=== PATIENT | female | born 1980 | race Caucasian/White ===

== ENCOUNTER 2017-03-07 14:24 | Emergency (ER) | payer BC ==
[~2017-03-07] VITALS: Ht 162.5 cm; Wt 59.9 kg
[~2017-03-07 14:24] MED LIST: AMOXICILLIN500 MG PO; ATIVAN0.5 MG PO; ATIVAN1 MG PO; ATOXIMETIN-B1 CAP PO; B COMPLEX & B121 TAB PO; BACTRIM DS 8001 TA1 PO; BIRTH CONTROL1 EAC1 PO; CATAPRES0.1 MG PO; CLINDAMYCIN HC300 MG PO; ELMIRON100 MG PO; LISINOPRIL10 MG PO; LOPRESSOR50 MG PO; NEURONTIN600 MG PO; NEXIUM20 MG/PACK PO; NEXIUM40 MG PO; PENICILLIN VK500 MG PO; PRINIVIL5 MG PO; TRAMADOL HCL50 MG PO; ULTRAM50 MG PO; VICODIN ES 7501 TAB PO; XANAX0.5 MG PO; ZESTRIL10 MG PO; ZOLOFT100 MG PO; ZOLOFT25 MG PO; ZOLOFT50 MG PO
[2017-03-07] MEDS ORDERED: ABILIFY10 MG PO (14:30)
[2017-03-07] MEDS ORDERED: BUSPAR15 MG PO (14:30)
[2017-03-07] MEDS ORDERED: XANAX1 MG PO (14:30)
[2017-03-07] MEDS ORDERED: AMOXICILLIN500 M2 PO (14:40)
[2017-03-07] MEDS ORDERED: ANAPROX DS550 MG PO (14:40)
== END 2017-03-07 14:54 | disposition home or self-care (01) ==
LOC: ED 14:24
DX: K08.89 Other specified disorders of teeth and supporting structures (principal); F17.200 Nicotine dependence, unspecified, uncomplicated; Z79.899 Other long term (current) drug therapy

== ENCOUNTER 2018-12-11 14:07 | Emergency (ER) | payer OTHER ==
[~2018-12-11] VITALS: Ht 162.5 cm; Wt 59.0 kg
[~2018-12-11 14:07] MED LIST changes: +ABILIFY10 MG PO; +AMOXICILLIN500 M2 PO; +ANAPROX DS550 MG PO; +BUSPAR15 MG PO; +XANAX1 MG PO
[2018-12-11 14:40] LABS: BASO % 0.4 % (0.0-1.0); EOS # 0.1 10*3/uL (0.0-0.4); EOS % 0.6 % (1.0-4.0); HEMATOCRIT 40.3 % (37.0-47.0); HEMOGLOBIN 13.9 g/dl (12.0-16.0); MEAN CELL VOLUME 96.9 fl (81.0-99.0); MEAN CORPUSCULAR HGB 33.4 pg (27.0-31.0); MEAN CORPUSCULAR HGB CONC 34.5 g/dl (33.0-37.0); MEAN PLATELET VOLUME 10.5 fl (9.6-12.3); MONO # 0.9 10*3/uL (0.1-1.0); MONO % 9.1 % (3.0-9.0); NEUT # 7.7 10*3/uL (2.3-7.9); NEUT % 79.6 % (47.0-73.0); PLATELET COUNT AUTOMATED 237 10*3/uL (130-400); RED BLOOD COUNT 4.16 10*6/uL (4.10-5.10); RED CELL DISTRI WIDTH 12.6 % (0-14.5); WHITE BLOOD COUNT 9.6 10*3/uL (4.8-10.8)
[2018-12-11 15:02] LABS: ALBUMIN 3.2 gm/dl (3.1-4.5); ALKALINE PHOSPHATASE 83 U/L (45-117); BUN 7 mg/dl (7-24); CHLORIDE 106 mmol/L (98-107); CREATININE 0.92 mg/dL (0.55-1.02); POTASSIUM 3.4 mmol/L (3.5-5.1); SGOT/AST 19 IU/L (3-35); SGPT/ALT 18 U/L (12-78); SODIUM 137 mmol/L (136-145); TOTAL PROTEIN 7.2 gm/dL (6.4-8.2)
[2018-12-11] MEDS ORDERED: PREDNISONE20 M1 PO (16:34)
[2018-12-11] MEDS ORDERED: VIBRAMYCIN100 MG PO (16:34)
[2018-12-11] MEDS ORDERED: PROVENTIL HFA6.7 GM INH (16:34)
== END 2018-12-11 16:40 | disposition home or self-care (01) ==
LOC: ED 14:07
PROVIDERS: Emergency Medicine
DX: J40 Bronchitis, not specified as acute or chronic (principal); I10 Essential (primary) hypertension; F17.200 Nicotine dependence, unspecified, uncomplicated; Z79.899 Other long term (current) drug therapy; Z79.2 Long term (current) use of antibiotics

== ENCOUNTER 2018-12-17 14:56 | Emergency (ER) | payer OTHER ==
[~2018-12-17] VITALS: Ht 162.5 cm; Wt 59.0 kg
[~2018-12-17 14:56] MED LIST changes: +PREDNISONE20 M1 PO; +PROVENTIL HFA6.7 GM INH; +VIBRAMYCIN100 MG PO
[2018-12-17 15:42] LABS: BASO % 0.2 % (0.0-1.0); EOS % 0.2 % (1.0-4.0); HEMATOCRIT 43.2 % (37.0-47.0); HEMOGLOBIN 14.4 g/dl (12.0-16.0); LYMPH # 2.9 10*3/uL (1.3-4.4); LYMPH % 24.5 % (27.0-41.0); MEAN CELL VOLUME 98.9 fl (81.0-99.0); MEAN CORPUSCULAR HGB CONC 33.3 g/dl (33.0-37.0); MEAN PLATELET VOLUME 9.6 fl (9.6-12.3); MONO # 0.9 10*3/uL (0.1-1.0); MONO % 7.1 % (3.0-9.0); NEUT # 8.1 10*3/uL (2.3-7.9); NEUT % 67.2 % (47.0-73.0); PLATELET COUNT AUTOMATED 332 10*3/uL (130-400); RED BLOOD COUNT 4.37 10*6/uL (4.10-5.10); RED CELL DISTRI WIDTH 12.8 % (0-14.5)
[2018-12-17 16:09] LABS: ALBUMIN 3.5 gm/dl (3.1-4.5); ALKALINE PHOSPHATASE 87 U/L (45-117); BUN 11 mg/dl (7-24); CHLORIDE 99 mmol/L (98-107); CREATININE 1.04 mg/dL (0.55-1.02); POTASSIUM 3.4 mmol/L (3.5-5.1); SGOT/AST 20 IU/L (3-35); SGPT/ALT 21 U/L (12-78); SODIUM 136 mmol/L (136-145); TOTAL PROTEIN 7.6 gm/dL (6.4-8.2)
[2018-12-17] MEDS ORDERED: TESSALON PERLE100 M1 PO (16:39)
[2018-12-17] MEDS ORDERED: ANAPROX DS550 MG PO (16:39)
[2018-12-17] MEDS ORDERED: ZITHROMAX250 MG PO (16:39)
== END 2018-12-17 16:46 | disposition home or self-care (01) ==
LOC: ED 14:56
PROVIDERS: Physician Assistant
DX: K08.89 Other specified disorders of teeth and supporting structures (principal); R05 Cough; Z79.899 Other long term (current) drug therapy

== ENCOUNTER 2019-06-12 07:54 | Emergency (ER) | payer OTHER ==
[~2019-06-12] VITALS: Ht 266.7 cm; Wt 58.5 kg
--- NOTE | ~2019-06-12 | EKG ---
[place], [place] ELECTROCARDIOGRAM REPORT NAME: VIANCA ERICKSON UNIT #: [id number] ROOM: DOCTOR: EPIPHANY DRAFT REPORT BIRTHDATE: [birth year] [facility] Test Date: 2019-06-12 Test Time: 10:46:37 Pat Name: VIANCA ERICKSON Department: Room: Gender: F [employer] Teacher: : 1980 Requested By: DOROTHY CHANDLER Order Number: [id number] Reading MD: Tariq James MD Measurements Intervals [place] Rate: 83 P: 44 [place]: 112 QRS: 57 QRSD: 83 T: 44 QT: 347 QTc: 408 Interpretive Statements Sinus rhythm Electronically Signed On 06-13-2019 9:01:47 PDT by Tariq James MD CM:EKGRPT:ELECTROCARDIOGRAM REPORT [id number] DOROTHY MCDONALD DRAFT REPORT DOROTHY CHANDLER MD
[~2019-06-12 07:54] MED LIST changes: +TESSALON PERLE100 M1 PO; +ZITHROMAX250 MG PO
[2019-06-12 08:16] LABS: BASO # 0.1 10*3/uL (0.0-0.1); BASO % 0.8 % (0.0-1.0); EOS # 0.2 10*3/uL (0.0-0.4); EOS % 2.8 % (1.0-4.0); HEMATOCRIT 39.2 % (37.0-47.0); HEMOGLOBIN 12.8 g/dl (12.0-16.0); MEAN CELL VOLUME 102.3 fl (81.0-99.0); MEAN CORPUSCULAR HGB 33.4 pg (27.0-31.0); MEAN CORPUSCULAR HGB CONC 32.7 g/dl (33.0-37.0); MEAN PLATELET VOLUME 9.8 fl (9.6-12.3); MONO # 0.4 10*3/uL (0.1-1.0); MONO % 4.9 % (3.0-9.0); NEUT # 4.8 10*3/uL (2.3-7.9); NEUT % 64.2 % (47.0-73.0); PLATELET COUNT AUTOMATED 357 10*3/uL (130-400); RED BLOOD COUNT 3.83 10*6/uL (4.10-5.10); RED CELL DISTRI WIDTH 13.4 % (0-14.5); WHITE BLOOD COUNT 7.5 10*3/uL (4.8-10.8)
[2019-06-12 08:33] LABS: ALBUMIN 3.3 gm/dl (3.1-4.5); ALKALINE PHOSPHATASE 79 U/L (45-117); BUN 6 mg/dl (7-24); CHLORIDE 112 mmol/L (98-107); CREATININE 0.89 mg/dL (0.55-1.02); POTASSIUM 4.1 mmol/L (3.5-5.1); SGOT/AST 17 IU/L (3-35); SGPT/ALT 13 U/L (12-78); SODIUM 143 mmol/L (136-145); TOTAL PROTEIN 7.4 gm/dL (6.4-8.2)
[2019-06-12 10:11] LABS: BILIRUBIN NEGATIVE (NEGATIVE); BLOOD NEGATIVE (NEGATIVE); CLARITY CLEAR (CLEAR); COLOR YELLOW (YELLOW); GLUCOSE NEGATIVE (NEGATIVE); KETONE NEGATIVE (NEGATIVE); LEUKO ESTERASE NEGATIVE (NEGATIVE); NITRITE NEGATIVE (NEGATIVE); PH 6.5 (5.0-9.0); UROBILINOGEN 0.2 E.U./dl (0.2-1.0)
[2019-06-12 10:19] LABS: URINE AMPHETAMINES < 1000 (1000ng/ml); URINE BARBITURATES < 200 (200ng/ml); URINE BENZODIAZEPINES < 200 (200ng/ml); URINE CANNABINOIDS (THC) < 50 (50ng/ml); URINE COCAINE > 300 (300ng/ml); URINE METHADONE < 300 (300ng/ml); URINE OPIATES < 300 (300ng/ml)
[2019-06-12 10:21] LABS: URINE PHENCYCLIDINE < 25 (25ng/ml)
== END 2019-06-12 13:08 | disposition home or self-care (01) ==
LOC: ED 07:54
PROVIDERS: Family Medicine
DX: F32.9 Major depressive disorder, single episode, unspecified (principal); I10 Essential (primary) hypertension; F10.929 Alcohol use, unspecified with intoxication, unspecified; F12.10 Cannabis abuse, uncomplicated; F19.10 Other psychoactive substance abuse, uncomplicated; F17.200 Nicotine dependence, unspecified, uncomplicated; Z79.899 Other long term (current) drug therapy; Y90.9 Presence of alcohol in blood, level not specified

== ENCOUNTER 2020-04-12 09:41 | Emergency (ER) | payer OTHER ==
[~2020-04-12] VITALS: Ht 162.5 cm; Wt 68.0 kg
[2020-04-12] MEDS ORDERED: Motrin,Rufen800 MG PO (10:09)
[2020-04-12] MEDS ORDERED: PENICILLIN VK500 MG PO (10:09)
== END 2020-04-12 10:15 | disposition home or self-care (01) ==
LOC: ED 09:41
DX: K04.7 Periapical abscess without sinus (principal); Z79.899 Other long term (current) drug therapy

== ENCOUNTER 2020-07-26 12:19 | Emergency (ER) | payer OTHER ==
[~2020-07-26] VITALS: Ht 162.5 cm; Wt 63.5 kg
[~2020-07-26 12:19] MED LIST changes: +Motrin,Rufen800 MG PO
[2020-07-26] MEDS ORDERED: TESSALON PERLE100 M1 PO (14:04)
[2020-07-26] MEDS ORDERED: PREDNISONE20 M1 PO (14:04)
[2020-07-26] MEDS ORDERED: PROVENTIL HFA6.7 GM INH (14:04)
== END 2020-07-26 15:16 | disposition home or self-care (01) ==
LOC: ED 12:19
DX: J40 Bronchitis, not specified as acute or chronic (principal); Z79.899 Other long term (current) drug therapy; Z79.2 Long term (current) use of antibiotics

== ENCOUNTER 2021-03-27 21:26 | Emergency (ER) | payer OTHER ==
[~2021-03-27] VITALS: Ht 162.5 cm; Wt 59.9 kg
[2021-03-27 21:45] LABS: BASO # 0.1 10*3/uL (0.0-0.1); BASO % 0.7 % (0.0-1.0); EOS # 0.2 10*3/uL (0.0-0.4); EOS % 2.2 % (1.0-4.0); HEMATOCRIT 41.9 % (37.0-47.0); LYMPH % 36.6 % (27.0-41.0); MEAN CELL VOLUME 95.9 fl (81.0-99.0); MEAN CORPUSCULAR HGB CONC 33.4 g/dl (33.0-37.0); MEAN PLATELET VOLUME 10.5 fl (9.6-12.3); MONO # 0.7 10*3/uL (0.1-1.0); MONO % 8.8 % (3.0-9.0); NEUT # 4.2 10*3/uL (2.3-7.9); NEUT % 51.6 % (47.0-73.0); PLATELET COUNT AUTOMATED 322 10*3/uL (130-400); RED BLOOD COUNT 4.37 10*6/uL (4.10-5.10); RED CELL DISTRI WIDTH 12.8 % (0-14.5); WHITE BLOOD COUNT 8.2 10*3/uL (4.8-10.8)
[2021-03-27 22:02] LABS: ALBUMIN 3.8 gm/dl (3.1-4.5); ALKALINE PHOSPHATASE 84 U/L (45-117); BUN 5 mg/dl (7-24); CHLORIDE 104 mmol/L (98-107); CREATININE 1.06 mg/dL (0.55-1.02); POTASSIUM 3.7 mmol/L (3.5-5.1); SGOT/AST 24 IU/L (3-35); SGPT/ALT 18 U/L (12-78); SODIUM 139 mmol/L (136-145); TOTAL PROTEIN 7.4 gm/dL (6.4-8.2)
[2021-03-27 22:03] LABS: ACETAMINOPHEN (TYLENOL) < 5.0 ug/ml (10-30)
[2021-03-27 22:04] LABS: BILIRUBIN Negative (Negative); BLOOD Negative (Negative); CLARITY Clear (Clear); COLOR Yellow (Yellow); GLUCOSE Negative (Negative); KETONE Negative (Negative); LEUKO ESTERASE Negative (Negative); NITRITE Negative (Negative); PH 5.5 (4.5-8.0); SPECIFIC GRAVITY <= 1.005 (1.001-1.030); UROBILINOGEN 0.2 E.U./dl (0.0-1.0)
[2021-03-27 22:12] LABS: URINE AMPHETAMINES < 1000 (1000ng/ml); URINE BARBITURATES < 200 (200ng/ml); URINE BENZODIAZEPINES < 200 (200ng/ml); URINE CANNABINOIDS (THC) > 50 (50ng/ml); URINE COCAINE > 300 (300ng/ml); URINE METHADONE < 300 (300ng/ml); URINE OPIATES < 300 (300ng/ml)
[2021-03-27 22:13] LABS: URINE PHENCYCLIDINE < 25 (25ng/ml)
[2021-03-27 23:02] LABS: EPITHELIAL CELLS 16-20; RBC 0-2 rbc/hpf (0-2); WBC 0-2 wbc/hpf (0-5)
== END 2021-03-28 09:25 | disposition home or self-care (01) ==
LOC: ED 21:26
PROVIDERS: Emergency Medicine
DX: F43.21 Adjustment disorder with depressed mood (principal); Z79.899 Other long term (current) drug therapy

== ENCOUNTER 2021-04-29 23:15 | Emergency (ER) | payer OTHER ==
[~2021-04-29] VITALS: Ht 167.6 cm; Wt 73.5 kg
[2021-04-30] MEDS ORDERED: CEPHALEXIN500 M1 PO (11:31)
[2021-04-30] MEDS ORDERED: NAPROXEN250 MG PO (11:31)
[2021-04-30] MEDS ORDERED: TYLENOL325 M1 PO (11:31)
== END 2021-04-30 01:03 | disposition left against medical advice (07) ==
LOC: ED 23:15
DX: S61.411A Laceration without foreign body of right hand, initial encounter (principal); S61.412A Laceration without foreign body of left hand, initial encounter; Z79.899 Other long term (current) drug therapy; W22.8XXA Striking against or struck by other objects, initial encounter; Y93.89 Activity, other specified; Y92.89 Other specified places as the place of occurrence of the external cause; Y99.9 Unspecified external cause status

== ENCOUNTER 2021-04-30 07:56 | Emergency (ER) | payer OTHER ==
[~2021-04-30] VITALS: Wt 59.9 kg
[2021-04-30] MEDS ORDERED: TYLENOL325 M1 PO (11:31)
[2021-04-30] MEDS ORDERED: CEPHALEXIN500 M1 PO (11:31)
[2021-04-30] MEDS ORDERED: NAPROXEN250 MG PO (11:31)
== END 2021-04-30 11:43 | disposition home or self-care (01) ==
LOC: ED 07:56
DX: S61.411A Laceration without foreign body of right hand, initial encounter (principal); S51.011A Laceration without foreign body of right elbow, initial encounter; S61.012A Laceration without foreign body of left thumb without damage to nail, initial encounter; S51.811A Laceration without foreign body of right forearm, initial encounter; F17.200 Nicotine dependence, unspecified, uncomplicated; F14.10 Cocaine abuse, uncomplicated; I10 Essential (primary) hypertension; Z79.899 Other long term (current) drug therapy; X78.0XXA Intentional self-harm by sharp glass, initial encounter; Y93.89 Activity, other specified; Y92.89 Other specified places as the place of occurrence of the external cause; Y99.9 Unspecified external cause status

== ENCOUNTER 2021-09-30 22:26 | Emergency (ER) | payer OTHER ==
[~2021-09-30] VITALS: Ht 162.5 cm; Wt 61.7 kg
[~2021-09-30 22:26] MED LIST changes: +CEPHALEXIN500 M1 PO; +NAPROXEN250 MG PO; +TYLENOL325 M1 PO
[2021-09-30 22:57] LABS: BASO # 0.1 10*3/uL (0.0-0.1); BASO % 0.5 % (0.0-1.0); EOS # 0.3 10*3/uL (0.0-0.4); EOS % 2.4 % (1.0-4.0); HEMATOCRIT 34.8 % (37.0-47.0); LYMPH % 18.6 % (27.0-41.0); MEAN CELL VOLUME 94.8 fl (81.0-99.0); MEAN CORPUSCULAR HGB 32.7 pg (27.0-31.0); MEAN CORPUSCULAR HGB CONC 34.5 g/dl (33.0-37.0); MEAN PLATELET VOLUME 10.2 fl (9.6-12.3); MONO # 0.8 10*3/uL (0.1-1.0); NEUT # 7.7 10*3/uL (2.3-7.9); NEUT % 71.2 % (47.0-73.0); PLATELET COUNT AUTOMATED 273 10*3/uL (130-400); RED BLOOD COUNT 3.67 10*6/uL (4.10-5.10); RED CELL DISTRI WIDTH 12.3 % (0-14.5); WHITE BLOOD COUNT 10.8 10*3/uL (4.8-10.8)
[2021-09-30 23:18] LABS: ALBUMIN 2.9 gm/dl (3.1-4.5); ALKALINE PHOSPHATASE 64 U/L (45-117); BUN 9 mg/dl (7-24); CHLORIDE 104 mmol/L (98-107); CREATININE 0.69 mg/dL (0.55-1.02); POTASSIUM 3.5 mmol/L (3.5-5.1); SGOT/AST 15 IU/L (3-35); SGPT/ALT 18 U/L (12-78); SODIUM 136 mmol/L (136-145); TOTAL PROTEIN 6.8 gm/dL (6.4-8.2)
[2021-09-30 23:39] LABS: BILIRUBIN Negative (Negative); BLOOD Negative (Negative); CLARITY Clear (Clear); COLOR Yellow (Yellow); GLUCOSE Negative (Negative); KETONE Negative (Negative); LEUKO ESTERASE Negative (Negative); NITRITE Negative (Negative); SPECIFIC GRAVITY <= 1.005 (1.001-1.030); UROBILINOGEN 0.2 E.U./dl (0.0-1.0)
[2021-10-01 00:11] LABS: BACTERIA TRACE
== END 2021-10-01 00:29 | disposition home or self-care (01) ==
LOC: ED 22:26
PROVIDERS: Internal Medicine
DX: O16.2 Unspecified maternal hypertension, second trimester (principal); Z3A.19 19 weeks gestation of pregnancy

== ENCOUNTER 2021-10-18 03:13 | Emergency (ER) | payer OTHER ==
[~2021-10-18] VITALS: Ht 162.5 cm; Wt 62.6 kg
[2021-10-18 04:07] LABS: BASO % 0.3 % (0.0-1.0); EOS # 0.1 10*3/uL (0.0-0.4); EOS % 0.4 % (1.0-4.0); HEMATOCRIT 32.4 % (37.0-47.0); LYMPH # 1.5 10*3/uL (1.3-4.4); LYMPH % 11.5 % (27.0-41.0); MEAN CELL VOLUME 95.3 fl (81.0-99.0); MEAN CORPUSCULAR HGB 32.6 pg (27.0-31.0); MEAN CORPUSCULAR HGB CONC 34.3 g/dl (33.0-37.0); MEAN PLATELET VOLUME 9.6 fl (9.6-12.3); MONO # 0.6 10*3/uL (0.1-1.0); MONO % 4.7 % (3.0-9.0); NEUT % 82.4 % (47.0-73.0); PLATELET COUNT AUTOMATED 323 10*3/uL (130-400); RED CELL DISTRI WIDTH 12.7 % (0-14.5); WHITE BLOOD COUNT 13.3 10*3/uL (4.8-10.8)
[2021-10-18 04:34] LABS: ALBUMIN 2.8 gm/dl (3.1-4.5); ALKALINE PHOSPHATASE 71 U/L (45-117); BUN 5 mg/dl (7-24); CHLORIDE 105 mmol/L (98-107); CREATININE 0.74 mg/dL (0.55-1.02); LIPASE 96 U/L (73-393); POTASSIUM 3.3 mmol/L (3.5-5.1); SGOT/AST 27 IU/L (3-35); SGPT/ALT 22 U/L (12-78); SODIUM 136 mmol/L (136-145); TOTAL PROTEIN 6.7 gm/dL (6.4-8.2)
[2021-10-18 04:44] LABS: ETHYL ALCOHOL < 3.0 mg/dl (<3)
[2021-10-18 06:22] LABS: BILIRUBIN Negative (Negative); BLOOD Negative (Negative); CLARITY Clear (Clear); COLOR Yellow (Yellow); GLUCOSE Negative (Negative); KETONE Negative (Negative); LEUKO ESTERASE 1+ (Negative); NITRITE Negative (Negative); PH 6.5 (4.5-8.0); SPECIFIC GRAVITY <= 1.005 (1.001-1.030); UROBILINOGEN 0.2 E.U./dl (0.0-1.0)
[2021-10-18 06:30] LABS: URINE AMPHETAMINES < 1000 (1000ng/ml); URINE BARBITURATES < 200 (200ng/ml); URINE BENZODIAZEPINES < 200 (200ng/ml); URINE CANNABINOIDS (THC) > 50 (50ng/ml); URINE COCAINE > 300 (300ng/ml); URINE METHADONE < 300 (300ng/ml); URINE OPIATES < 300 (300ng/ml)
[2021-10-18 06:35] LABS: URINE PHENCYCLIDINE < 25 (25ng/ml)
[2021-10-18 07:05] LABS: BACTERIA 1+
== END 2021-10-18 07:55 ==
LOC: ED 03:13
PROVIDERS: Emergency Medicine
DX: O26.892 Other specified pregnancy related conditions, second trimester (principal); R10.32 Left lower quadrant pain; O26.852 Spotting complicating pregnancy, second trimester; O99.312 Alcohol use complicating pregnancy, second trimester; F10.929 Alcohol use, unspecified with intoxication, unspecified; O99.332 Smoking (tobacco) complicating pregnancy, second trimester; F17.200 Nicotine dependence, unspecified, uncomplicated; Z79.2 Long term (current) use of antibiotics; Z3A.22 22 weeks gestation of pregnancy; Z79.899 Other long term (current) drug therapy; Y90.0 Blood alcohol level of less than 20 mg/100 ml

== ENCOUNTER → 2022-01-07 | Outpatient (CLI) | payer OTHER | END | disposition home or self-care (01) | LOC: LAB 07:56 | PROVIDERS: ATTEND Obstetrics & Gynecology | DX: R73.09 Other abnormal glucose (principal) ==

== ENCOUNTER 2022-01-17 11:36 | Emergency (ER) | payer OTHER ==
[~2022-01-17] VITALS: Ht 162.5 cm; Wt 64.4 kg
[2022-01-17 12:06] LABS: BILIRUBIN Negative (Negative); BLOOD Negative (Negative); CLARITY Clear (Clear); COLOR Yellow (Yellow); GLUCOSE Negative (Negative); KETONE Negative (Negative); LEUKO ESTERASE Negative (Negative); NITRITE Negative (Negative); SPECIFIC GRAVITY <= 1.005 (1.001-1.030); UROBILINOGEN 0.2 E.U./dl (0.0-1.0)
[2022-01-17 12:31] LABS: BACTERIA 1+; YEAST TRACE
[2022-01-17 13:03] LABS: HEMATOCRIT 38.4 % (37.0-47.0); MEAN CELL VOLUME 93.4 fl (81.0-99.0); MEAN CORPUSCULAR HGB 31.9 pg (27.0-31.0); MEAN CORPUSCULAR HGB CONC 34.1 g/dl (33.0-37.0); PLATELET COUNT AUTOMATED 227 10*3/uL (130-400); RED BLOOD COUNT 4.11 10*6/uL (4.10-5.10); RED CELL DISTRI WIDTH 12.9 % (0-14.5); WHITE BLOOD COUNT 8.6 10*3/uL (4.8-10.8)
[2022-01-17 13:16] LABS: MANUAL DIFF REFLEX YES
[2022-01-17 13:18] LABS: ALKALINE PHOSPHATASE 143 U/L (45-117); BUN 8 mg/dl (7-24); CHLORIDE 105 mmol/L (98-107); CREATININE 0.73 mg/dL (0.55-1.02); POTASSIUM 4.4 mmol/L (3.5-5.1); SGOT/AST 15 IU/L (3-35); SGPT/ALT 14 U/L (12-78); SODIUM 138 mmol/L (136-145); TOTAL PROTEIN 6.4 gm/dL (6.4-8.2)
[2022-01-17 13:25] LABS: TOTAL CELLS COUNTED 100 #CELLS
[2022-01-17 13:26] LABS: PLATELET SUFFICIENCY NORMAL (NORMAL); POLYCHROMASIA SLIGHT
== END 2022-01-17 15:36 | disposition left against medical advice (07) ==
LOC: ED 11:36
PROVIDERS: Nurse Practitioner Family
DX: O14.93 Unspecified pre-eclampsia, third trimester (principal); Z3A.36 36 weeks gestation of pregnancy; Z79.899 Other long term (current) drug therapy

== ENCOUNTER 2022-01-23 22:12 | Emergency (ER) | payer OTHER ==
[~2022-01-23] VITALS: Ht 162.5 cm; Wt 63.5 kg
[2022-01-23 22:36] LABS: BASO # 0.1 10*3/uL (0.0-0.1); BASO % 0.7 % (0.0-1.0); EOS # 0.3 10*3/uL (0.0-0.4); EOS % 3.4 % (1.0-4.0); HEMATOCRIT 34.1 % (37.0-47.0); LYMPH # 2.1 10*3/uL (1.3-4.4); LYMPH % 27.9 % (27.0-41.0); MEAN CELL VOLUME 95.3 fl (81.0-99.0); MEAN CORPUSCULAR HGB 31.6 pg (27.0-31.0); MEAN CORPUSCULAR HGB CONC 33.1 g/dl (33.0-37.0); MEAN PLATELET VOLUME 10.3 fl (9.6-12.3); MONO # 0.7 10*3/uL (0.1-1.0); MONO % 9.1 % (3.0-9.0); NEUT # 4.3 10*3/uL (2.3-7.9); NEUT % 57.9 % (47.0-73.0); PLATELET COUNT AUTOMATED 364 10*3/uL (130-400); RED BLOOD COUNT 3.58 10*6/uL (4.10-5.10); RED CELL DISTRI WIDTH 13.2 % (0-14.5); WHITE BLOOD COUNT 7.4 10*3/uL (4.8-10.8)
[2022-01-23 22:51] LABS: BILIRUBIN Negative (Negative); BLOOD 3+ (Negative); CLARITY Cloudy (Clear); COLOR Orange (Yellow); GLUCOSE Negative (Negative); KETONE Negative (Negative); LEUKO ESTERASE 3+ (Negative); NITRITE Negative (Negative); PH 6.5 (4.5-8.0); SPECIFIC GRAVITY 1.015 (1.001-1.030); UROBILINOGEN 0.2 E.U./dl (0.0-1.0)
[2022-01-23 22:54] LABS: ALKALINE PHOSPHATASE 113 U/L (45-117); BUN 17 mg/dl (7-24); CHLORIDE 103 mmol/L (98-107); CREATININE 0.81 mg/dL (0.55-1.02); POTASSIUM 3.9 mmol/L (3.5-5.1); SGOT/AST 30 IU/L (3-35); SGPT/ALT 36 U/L (12-78); SODIUM 138 mmol/L (136-145); TOTAL PROTEIN 6.4 gm/dL (6.4-8.2)
[2022-01-23 22:58] LABS: BACTERIA 2+; RBC 41-50 rbc/hpf (0-2); WBC 41-50 wbc/hpf (0-5)
[2022-01-23] MEDS ORDERED: CIPRO500 MG PO (23:21)
== END 2022-01-23 23:28 | disposition home or self-care (01) ==
LOC: ED 22:12
PROVIDERS: Internal Medicine
DX: R60.0 Localized edema (principal); R82.71 Bacteriuria; Z79.899 Other long term (current) drug therapy

== ENCOUNTER 2022-04-09 12:09 | Emergency (ER) | payer OTHER ==
[~2022-04-09] VITALS: Wt 59.0 kg
[~2022-04-09 12:09] MED LIST changes: +CIPRO500 MG PO
== END 2022-04-09 13:11 | disposition home or self-care (01) ==
LOC: ED 12:09
DX: U07.1 COVID-19 (principal); I10 Essential (primary) hypertension; Z79.899 Other long term (current) drug therapy

== ENCOUNTER 2024-07-28 13:46 | Emergency (ER) | payer OTHER ==
[~2024-07-28] VITALS: Ht 162.5 cm; Wt 59.0 kg
[2024-07-28] MEDS ORDERED: methylPREDNISolone sod succ 125 MG VIAL IM ONE (14:20)
[2024-07-28] MEDS ORDERED: Albuterol Sulfate 2.5 MG/3 ML VIAL NEB ONE (14:20)
[2024-07-28 14:46] LABS: BASO # 0.1 10*3/uL (0.0-0.1); EOS # 0.1 10*3/uL (0.0-0.4); EOS % 1.4 % (1.0-4.0); HEMATOCRIT 40.6 % (37.0-47.0); LYMPH # 1.5 10*3/uL (1.3-4.4); LYMPH % 17.7 % (27.0-41.0); MEAN CELL VOLUME 101.2 fl (81.0-99.0); MEAN CORPUSCULAR HGB 33.7 pg (27.0-31.0); MEAN CORPUSCULAR HGB CONC 33.3 g/dl (33.0-37.0); MEAN PLATELET VOLUME 10.5 fl (9.6-12.3); MONO # 0.7 10*3/uL (0.1-1.0); MONO % 7.8 % (3.0-9.0); NEUT % 71.9 % (47.0-73.0); PLATELET COUNT AUTOMATED 362 10*3/uL (130-400); RED BLOOD COUNT 4.01 10*6/uL (4.10-5.10); WHITE BLOOD COUNT 8.4 10*3/uL (4.8-10.8)
[2024-07-28 15:06] LABS: BUN 9 mg/dl (9-23); CHLORIDE 103 mmol/L (98-107); POTASSIUM 4.4 mmol/L (3.4-5.1)
[2024-07-28] MEDS ORDERED: ZITHROMAX250 MG PO (15:43)
== END 2024-07-28 15:49 | disposition home or self-care (01) ==
LOC: ED 13:46
PROVIDERS: Nurse Practitioner
DX: J06.9 Acute upper respiratory infection, unspecified (principal); I10 Essential (primary) hypertension; F41.9 Anxiety disorder, unspecified; K21.9 Gastro-esophageal reflux disease without esophagitis; F32.A Depression, unspecified; Z87.891 Personal history of nicotine dependence

== ENCOUNTER 2024-08-21 13:51 | Emergency (ER) | payer OTHER ==
[~2024-08-21] VITALS: Ht 162.5 cm; Wt 61.2 kg
[2024-08-21] MEDS ORDERED: NEURONTIN300 MG PO (14:20)
[2024-08-21] MEDS ORDERED: MIRTAZAPINE15 M2 PO (14:20)
[2024-08-21] MEDS ORDERED: SERTRALINE HCL150 MG PO (14:22)
[2024-08-21] MEDS ORDERED: ALBUTEROL 8 GM INHALER INH ONE (14:35)
[2024-08-21] MEDS ORDERED: methylPREDNISolone sod succ 125 MG VIAL IM ONE (14:35)
[2024-08-21 15:03] LABS: BUN 9 mg/dl (9-23); CHLORIDE 102 mmol/L (98-107); POTASSIUM 3.9 mmol/L (3.4-5.1)
[2024-08-21 15:08] LABS: HEMATOCRIT 43.9 % (37.0-47.0); MEAN CELL VOLUME 97.8 fl (81.0-99.0); MEAN CORPUSCULAR HGB 32.5 pg (27.0-31.0); MEAN CORPUSCULAR HGB CONC 33.3 g/dl (33.0-37.0); MEAN PLATELET VOLUME 10.4 fl (9.6-12.3); PLATELET COUNT AUTOMATED 369 10*3/uL (130-400); RED BLOOD COUNT 4.49 10*6/uL (4.10-5.10); RED CELL DISTRI WIDTH 12.8 % (0-14.5); WHITE BLOOD COUNT 6.2 10*3/uL (4.8-10.8)
[2024-08-21 15:13] LABS: MANUAL DIFF REFLEX YES
[2024-08-21 15:16] LABS: BASOPHILS 1 % (0-1); TOTAL CELLS COUNTED 100 #CELLS
[2024-08-21 15:17] LABS: PLATELET SUFFICIENCY NORMAL (NORMAL)
[2024-08-21] MEDS ORDERED: AVPAK AZITHROM250 M1 PO (15:23)
[2024-08-21] MEDS ORDERED: MEDROL DOSEPAK4 MG PO (15:23)
[2024-08-21] MEDS ORDERED: AZITHROMYCIN 250 MG TAB PO ONE (15:25)
== END 2024-08-21 15:28 | disposition home or self-care (01) ==
LOC: ED 13:51
PROVIDERS: Physician Assistant Medical
DX: J06.9 Acute upper respiratory infection, unspecified (principal); I10 Essential (primary) hypertension; F17.210 Nicotine dependence, cigarettes, uncomplicated; Z79.899 Other long term (current) drug therapy

== ENCOUNTER 2024-11-09 12:02 | Emergency (ER) | payer OTHER ==
[~2024-11-09] VITALS: Wt 59.0 kg
[~2024-11-09 12:02] MED LIST changes: +AVPAK AZITHROM250 M1 PO; +MEDROL DOSEPAK4 MG PO; +MIRTAZAPINE15 M2 PO; +NEURONTIN300 MG PO; +SERTRALINE HCL150 MG PO
[2024-11-09] MEDS ORDERED: Albuterol Sulf/Ipratropium 3 ML VIAL NEB ONE (13:50)
[2024-11-09] MEDS ORDERED: methylPREDNISolone sod succ 125 MG VIAL IV ONE (13:50)
[2024-11-09 14:01] LABS: BASO # 0.1 10*3/uL (0.0-0.1); BASO % 0.5 % (0.0-1.0); EOS # 0.1 10*3/uL (0.0-0.4); EOS % 1.1 % (1.0-4.0); HEMATOCRIT 41.4 % (37.0-47.0); MEAN CELL VOLUME 95.4 fl (81.0-99.0); MEAN CORPUSCULAR HGB CONC 33.6 g/dl (33.0-37.0); MEAN PLATELET VOLUME 9.6 fl (9.6-12.3); MONO # 0.6 10*3/uL (0.1-1.0); NEUT # 8.3 10*3/uL (2.3-7.9); NEUT % 80.9 % (47.0-73.0); PLATELET COUNT AUTOMATED 347 10*3/uL (130-400); RED BLOOD COUNT 4.34 10*6/uL (4.10-5.10); RED CELL DISTRI WIDTH 12.9 % (0-14.5); WHITE BLOOD COUNT 10.2 10*3/uL (4.8-10.8)
[2024-11-09 16:17] LABS: CHLORIDE 95 mmol/L (98-107); POTASSIUM 4.1 mmol/L (3.4-5.1)
[2024-11-09 16:18] LABS: BUN < 5 mg/dl (9-23)
[2024-11-09] MEDS ORDERED: AVPAK AZITHROM250 M1 PO (16:36)
[2024-11-09] MEDS ORDERED: PREDNISONE20 M1 PO (16:36)
[2024-11-09] MEDS ORDERED: AZITHROMYCIN 250 MG TAB PO ONE (16:40)
[2024-11-09] MEDS ORDERED: ALBUTEROL 8 GM INHALER INH ONE (16:55)
== END 2024-11-09 16:48 | disposition home or self-care (01) ==
LOC: ED 12:02
PROVIDERS: Nurse Practitioner Family
DX: J40 Bronchitis, not specified as acute or chronic (principal); I10 Essential (primary) hypertension; F32.A Depression, unspecified; F41.9 Anxiety disorder, unspecified; K21.9 Gastro-esophageal reflux disease without esophagitis

== ENCOUNTER 2024-11-21 23:35 | Emergency (ER) | payer OTHER ==
[~2024-11-21] VITALS: Ht 162.5 cm; Wt 59.9 kg
[2024-11-22] MEDS ORDERED: IBUPROFEN 400 MG TAB PO ONE (02:35)
== END 2024-11-22 02:40 | disposition home or self-care (01) ==
LOC: ED 23:35
DX: J10.1 Influenza due to other identified influenza virus with other respiratory manifestations (principal); Z20.822 Contact with and (suspected) exposure to COVID-19; I10 Essential (primary) hypertension; F41.9 Anxiety disorder, unspecified; K21.9 Gastro-esophageal reflux disease without esophagitis